=== PATIENT | male | born 1995 | race Caucasian/White ===

== ENCOUNTER 2024-05-05 19:38 | Emergency (ER) | payer BC, OTHER, SELFPAY ==
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
[2024-05-05] MEDS ORDERED: LIDOCAINE VISCOUS 2% 10ML ORAL SOLN ONE (20:13)
[2024-05-05] MEDS ORDERED: MAGNES/ALUMIN/SIMET 30ML UCUP ONE (20:13)
--- NOTE | 2024-05-05 20:22 | ER ---
Nurse's Notes [facility] Name: Kevin Hinds Age: 28 yrs Sex: Male : 1995 Arrival Date: 05/05/2024 Time: 19:38 Bed DX3 Private MD: Diagnosis: Esophageal reflux, gastritis Presentation: 05/05 19:45 Chief complaint: Patient states: center chest pressure since this morning. Coronavirus lg3 screen: Client denies travel out of the [place] in the last 14 days. At this time, the client does not indicate any symptoms associated with coronavirus-19. Ebola Screen: No symptoms or risks identified at this time. Initial Sepsis Screen: Does the patient meet any 2 criteria? No. Patient's initial sepsis screen is negative. Does the patient have a suspected source of infection? No. Patient's initial sepsis screen is negative. Risk Assessment: Do you want to hurt yourself or someone else? Patient reports no desire to harm self or others. Onset of symptoms was May 05, 2024. 19:45 Method Of Arrival: Ambulatory lg3 19:45 Acuity: DONNA 3 lg3 Triage Assessment: 19:48 General: Appears in no apparent distress. comfortable, Behavior is cooperative, lg3 anxious. Pain: Complains of pain in chest Pain does not radiate. Pain currently is 2 out of 10 on a pain scale. Quality of pain is described as pressure. EENT: No deficits noted. No signs and/or symptoms were reported regarding the EENT system. Neuro: No deficits noted. Nevarez Agitation-Sedation Scale (RASS): 0 - Alert and Calm Level of Consciousness is awake, alert, obeys commands, Oriented to person, place, time, situation. Cardiovascular: Reports chest pressure Heart tones S1 S2 present Capillary refill < 3 seconds Clubbing of nail beds is absent JVD is absent Patient's skin is warm and dry. Respiratory: No deficits noted. Airway is patent Respiratory effort is even, unlabored, Respiratory pattern is regular, symmetrical. GI: No deficits noted. No signs and/or symptoms were reported involving the gastrointestinal system. : No signs and/or symptoms were reported regarding the genitourinary system. Derm: No deficits noted. No signs and/or symptoms reported regarding the dermatologic system. Skin is intact, is healthy with good turgor, Skin is dry, Skin is normal, Skin temperature is warm. Musculoskeletal: No deficits noted. No signs and/or symptoms reported regarding the musculoskeletal system. Circulation, motion, and sensation intact. Range of motion: intact in all extremities. Historical: - Allergies: 19:48 Amoxicillin; lg3 - Home Meds: 19:48 None [Active]; lg3 - PMHx: 19:48 None; lg3 - PSHx: 19:48 None; lg3 - Immunization history:: Adult Immunizations up to date. - Infectious Disease History:: Denies. - Social history:: Smoking status: Patient reports the use of cigarette tobacco products, denies chronic smoking, but will smoke occasionally, Patient uses alcohol, weekly. Patient/guardian denies using street drugs. Screenin:50 [facility] ED Fall Risk Assessment (Adult) History of falling in the last 3 months, lg3 including since admission No falls in past 3 months (0 pts) Confusion or Disorientation No (0 pts) Intoxicated or Sedated No (0 pts) Impaired Gait No (0 pts) Mobility Assist Device Used No (0 pt) Altered Elimination No (0 pt) Score/Fall Risk Level 0 - 2 = Low Risk Oriented to surroundings, Maintained a safe environment, Educated pt \T\ family on fall prevention, incl call for assistance when getting out of bed, Assessed \T\ reinforced patient's understanding of fall precautions. Abuse screen: Denies threats or abuse. Denies injuries from another. Nutritional screening: No deficits noted. Tuberculosis screening: No symptoms or risk factors identified. Assessment: 19:50 General: see triage assessment. Pain: Pain does not radiate. Pain currently is 2 out of lg3 10 on a pain scale. Quality of pain is described as pressure, Pain began gradually. 20:28 Reassessment: Patient appears in no apparent distress at this time. No changes from lg3 previously documented assessment. Patient and/or family updated on plan of care and expected duration. Pain level reassessed. Patient is alert, oriented x 3, equal unlabored respirations, skin warm/dry/pink. Vital Signs: 19:45 BP 141 / 81; Pulse 84; Resp 16 S; Temp 97.9(O); Pulse Ox 98% on R/A; Weight 95.25 kg; lg3 Height 6 ft. 1 in. (R); 20:28 BP 137 / 78; Pulse 81; Resp 17 S; Pulse Ox 99% on R/A; lg3 19:45 Body Mass Index 27.70 (95.25 kg, 185.42 cm) lg3 ED Course: 19:40 Patient arrived in ED. im 19:48 Triage completed. lg3 19:48 Arm band placed on right wrist. lg3 19:50 Patient has correct armband on for positive identification. lg3 19:50 Patient maintains SpO2 saturation greater than 95% on room air. lg3 19:53 Dre Zuleta MD is Attending Physician. sp3 20:08 EKG done, by ED staff, reviewed by Dre Zuleta MD. lg3 20:28 Client placed on continuous cardiac and pulse oximetry monitoring. NIBP monitoring lg3 applied. 20:28 No provider procedures requiring assistance completed. Patient did not have IV access lg3 during this emergency room visit. 20:29 CXR XRAY In Process Unspecified. EDMS Administered Medications: 20:18 Drug: GI Cocktail without - (Maalox PO 30 ml, Lidocaine Mucous Membrane 2 % 15 lg3 ml) PO once Route: PO; 20:30 Follow up: Response: No adverse reaction lg3 Medication: 20:28 VIS not applicable for this client. lg3 Outcome: 20:21 Discharge ordered by . sp3 20:28 Discharged to home ambulatory, lg3 20:28 Condition: stable 20:28 Discharge instructions given to patient, Instructed on discharge instructions, follow up and referral plans. Demonstrated understanding of instructions, follow-up care, 20:29 Patient left the ED. lg3 Signatures: Dispatcher [employer] EDMS Geneva Nicolas RN RN lg3 Dre Zuleta MD MD sp3 Lauren Padron im Corrections: (The following items were deleted from the chart) 19:49 19:48 Allergies: No Known Allergies; lg3 lg3
--- NOTE | 2024-05-05 20:22 | EDPHYS ---
Physician Documentation [facility] Name: Kevin Hinds Age: 28 yrs Sex: Male : 1995 Arrival Date: 05/05/2024 Time: 19:38 Bed DX3 Private MD: ED Physician Dre Zuleta HPI: 05/05 20:08 This 28 yrs old Male presents to ER via Ambulatory with complaints of Chest Tightness. 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 Patient states he has had a lot of food over the weekend due to Thanksgiving. He denies any shortness of breath, back pain, fever, vomiting, diarrhea, bleeding, melena, abdominal pain, syncope, near syncope, family history of sudden , family history of vascular disease, prolonged immobilization, travel history, history of PE, or any other signs or symptoms on ROS at this time.. Historical: - Allergies: 19:48 Amoxicillin; lg3 - Home Meds: 19:48 None [Active]; lg3 - PMHx: 19:48 None; lg3 - PSHx: 19:48 None; lg3 - Immunization history:: Adult Immunizations up to date. - Infectious Disease History:: Denies. - Social history:: Smoking status: Patient reports the use of cigarette tobacco products, denies chronic smoking, but will smoke occasionally, Patient uses alcohol, weekly. Patient/guardian denies using street drugs. ROS: 20:10 Constitutional: Negative for fever, chills, and weight loss, Eyes: Negative for injury, sp3 pain, redness, and discharge, ENT: Negative for injury, pain, and discharge, Neck: Negative for injury, pain, and swelling, Respiratory: Negative for shortness of breath, cough, wheezing, and pleuritic chest pain, Abdomen/GI: Negative for abdominal pain, nausea, vomiting, diarrhea, and constipation, Back: Negative for injury and pain, MS/Extremity: Negative for injury and deformity, Skin: Negative for injury, rash, and discoloration, Neuro: Negative for headache, weakness, numbness, tingling, and seizure, Psych: Negative for depression, anxiety, suicide ideation, homicidal ideation, and hallucinations, Allergy/Immunology: Negative for hives, rash, and allergies, Endocrine: Negative for neck swelling, polydipsia, polyuria, polyphagia, and marked weight changes, Hematologic/Lymphatic: Negative for swollen nodes, abnormal bleeding, and unusual bruising, 20:10 All other systems are negative, Exam: 19:56 ECG was reviewed by the Attending Physician. EKG demonstrates normal sinus rhythm at 75 sp3 bpm with normal intervals, normal QRS, normal axis, normal ST/T-segment's without evidence of acute ischemia. 20:10 Constitutional: This is a well developed, well nourished patient who is awake, alert, sp3 and in no acute distress. Head/Face: Normocephalic, atraumatic. Eyes: Pupils equal round and reactive to light, extra-ocular motions intact. Lids and lashes normal. Conjunctiva and sclera are non-icteric and not injected. Cornea within normal limits. Periorbital areas with no swelling, redness, or edema. Neck: Trachea midline, no thyromegaly or masses palpated, and no cervical lymphadenopathy. Supple, full range of motion without nuchal rigidity, or vertebral point tenderness. No Meningismus. Chest/axilla: Normal chest wall appearance and motion. Nontender with no deformity. No lesions are appreciated. Cardiovascular: Regular rate and rhythm with a normal S1 and S2. No gallops, murmurs, or rubs. Normal PMI, no JVD. No pulse deficits. Respiratory: Lungs have equal breath sounds bilaterally, clear to auscultation and percussion. No rales, rhonchi or wheezes noted. No increased work of breathing, no retractions or nasal flaring. Abdomen/GI: Soft, non-tender, with normal bowel sounds. No distension or tympany. No guarding or rebound. No evidence of tenderness throughout. Back: No spinal tenderness. No costovertebral tenderness. Full range of motion. Skin: Warm, dry with normal turgor. Normal color with no rashes, no lesions, and no evidence of cellulitis. MS/ Extremity: Pulses equal, no cyanosis. Neurovascular intact. Full, normal range of motion. Neuro: Awake and alert, GCS 15, oriented to person, place, time, and situation. Cranial nerves II-XII grossly intact. Motor strength 5/5 in all extremities. Sensory grossly intact. Cerebellar exam normal. Normal gait. Psych: Awake, alert, with orientation to person, place and time. Behavior, mood, and affect are within normal limits. Vital Signs: 19:45 BP 141 / 81; Pulse 84; Resp 16 S; Temp 97.9(O); Pulse Ox 98% on R/A; Weight 95.25 kg; lg3 Height 6 ft. 1 in. (R); 20:28 BP 137 / 78; Pulse 81; Resp 17 S; Pulse Ox 99% on R/A; lg3 19:45 Body Mass Index 27.70 (95.25 kg, 185.42 cm) lg3 MDM: 19:54 Medical Screening Exam initiated sp3 20:11 Data reviewed: vital signs, nurses notes, EKG, radiologic studies. ED course: sp3 28-year-old male with chief complaint heartburn and chest pain. Differential diagnosis includes gastritis, GERD, musculoskeletal pain. Clinically I am not highly suspicious for acute coronary syndrome as EKG is normal, PE, pneumonia or other infectious etiology, aortic pathology, or any other critical process at this time. Workup will include EKG which has already been performed and chest x-ray. Will also administer GI cocktail. Disposition probable discharge if workup is negative and patient is improved.. 20:20 ED course: Chest x-ray is negative. Vital signs continue to be normal. We will safely sp3 discharge patient home at this time.. 05/05 19:54 Order name: CXR XRAY sp3 05/05 19:54 Order name: EKG; Complete Time: 19:54 sp3 05/05 19:54 Order name: EKG - Nurse/Tech; Complete Time: 20:08 sp3 Administered Medications: 20:18 Drug: GI Cocktail without - (Maalox PO 30 ml, Lidocaine Mucous Membrane 2 % 15 lg3 ml) PO once Route: PO; 20:30 Follow up: Response: No adverse reaction lg3 Disposition Summary: 05/05/24 20:21 Discharge Ordered Notes: Location: Home sp3 Condition: Stable sp3 Diagnosis - Esophageal reflux, gastritis sp3 Followup: sp3 - With: Private Physician - When: Upon discharge from the Emergency Department - Reason: Continuance of care Discharge Instructions: - Discharge Summary Sheet sp3 - Gastritis, Adult sp3 Forms: - Medication Reconciliation Form sp3 - Antibiotic Education sp3 - Prescription Opioid Use sp3 - Patient Portal Instructions sp3 - Leadership Thank You Letter sp3 Signatures: Dispatcher [employer] Geneva Pino RN RN lg3 Dre Zuleta MD MD sp3 Corrections: (The following items were deleted from the chart) 19:49 19:48 Allergies: No Known Allergies; 3 3 19:54 19:54 Chest Single View+[email or web address] ordered. EDMS EDMS
--- NOTE | 2024-05-05 20:31 | RAD REPORT ---
EXAMINATION: ONE VIEW CHEST XR CLINICAL INDICATION: CHEST PAIN TECHNIQUE: Frontal chest projection is submitted. Examination is limited by patient positioning and t echnique. COMPARISON: No prior exam. FINDINGS: The lungs are well inflated and clear. The heart is upper limit of normal in size. No displaced fract ures identified. IMPRESSION: No acute intrathoracic abnormalities.
[2024-05-05 23:08] VITALS: TEMP 97.9
[2024-05-05 23:09] VITALS: BP 137/78; O2SAT 99
== END 2024-05-05 20:29 | disposition home or self-care (01) ==
LOC: ER 19:38
DX: K21.9 Gastro-esophageal reflux disease without esophagitis (principal); K29.70 Gastritis, unspecified, without bleeding; F17.210 Nicotine dependence, cigarettes, uncomplicated
CPT/HCPCS: 71045; 99284